=== PATIENT | female | born 1960 | race Caucasian/White ===

== ENCOUNTER 2017-04-10 08:47 | Emergency (ER) | payer MEDICAID ==
[~2017-04-10] VITALS: Ht 162.6 cm; Wt 50.0 kg
[~2017-04-10 08:47] MED LIST: ALENDRONATE70 MG PO; BACTRIM DS1 TAB PO; CARAFATE1 G1 OR; CEPHALEXIN500 MG PO; CIPRO500 MG OR; CIPROFLOXACIN H0.3 % OP; DEXILANT60 MG OR; DITROPAN PO; DITROPAN XL5 MG PO; DOXYCYCLINE HY100 MG PO; FLEXERIL PO; FOLIC ACID1 M1; KEFLEX500 MG PO; LEXAPRO10 MG PO; MEDDOSEPAK PO; MELOXICAM15 MG PO; METRONIDAZOL500 MG PO; MOBIC7.5 M1 PO; NAPROSYN500 MG PO; NAPROXEN500 MG OR; NO HOME MEDS; NO MEDS; NORCO1 TA1 PO; NYSTATIN100000 UN1; OXYCODONE/ACETA1 TA8; PHENERGAN25 MG/TAB PO; SYSTANE BAL OU; TESSALON PER100 MG PO; TETRACYCLINE500 MG OR; TRAMADOL HCL50 MG PO; ULTRAM50 M1 PO; UNK CHOLESTEROL MED; VENTOLIN HFA IN; VIBRAMYCIN100 M2 PO; ZITHROMAX250 MG PO
[2017-04-10] MEDS ORDERED: DITROPAN PO (10:01)
[2017-04-10] MEDS ORDERED: FLEXERIL PO (10:25)
[2017-04-10] MEDS ORDERED: LORTAB 10-325 M1 TAB PO (10:25)
[2017-04-10 10:45] VITALS: BP 105/77
== END 2017-04-10 10:45 | disposition home or self-care (01) | DRG 563 ==
LOC: ED 08:47
DX: S39.012A Strain of muscle, fascia and tendon of lower back, initial encounter (principal); F32.9 Major depressive disorder, single episode, unspecified; R10.2 Pelvic and perineal pain; F41.9 Anxiety disorder, unspecified; F17.210 Nicotine dependence, cigarettes, uncomplicated; X58.XXXA Exposure to other specified factors, initial encounter

== ENCOUNTER 2019-01-28 08:56 | Emergency (ER) | payer MEDICAID ==
[~2019-01-28] VITALS: Ht 162.6 cm; Wt 47.0 kg
[~2019-01-28 08:56] MED LIST changes: +LORTAB 10-325 M1 TAB PO
[2019-01-28 09:57] LABS: URINE BILIRUBIN - DIPSTICK NEGATIVE (NEGATIVE); URINE BLOOD DIPSTICK NEGATIVE (NEGATIVE); URINE COLOR YELLOW; URINE GLUCOSE - DIPSTICK NEGATIVE (NEGATIVE); URINE KETONE NEGATIVE (NEGATIVE); URINE LEUK ESTERASE TRACE (NEGATIVE); URINE NITRITE - DIPSTICK NEGATIVE (Negative); URINE PH 7.5 (4.5-8.0); URINE PROTEIN - DIPSTICK NEGATIVE (NEG-TRACE); URINE UROBILINOGEN - DIPSTICK 0.2 E.U./dL (0.2)
[2019-01-28 10:18] LABS: BARBITURATES NEGATIVE (NEGATIVE); COCAINE NEGATIVE (NEGATIVE); METHADONE NEGATIVE (NEGATIVE); OXCYCODONE NEGATIVE (NEGATIVE); TETRAHYDROCANNABIONOL NEGATIVE (NEGATIVE); TRICYLIC ANTIDEPRESSANTS NEGATIVE (NEGATIVE)
[2019-01-28] MEDS ORDERED: AMOXICILLIN500 MG PO (11:05)
[2019-01-28] MEDS ORDERED: NAPROSYN500 MG PO (11:05)
[2019-01-28 11:11] VITALS: BP 94/65
== END 2019-01-28 11:17 | disposition home or self-care (01) ==
LOC: ED 08:56
PROVIDERS: Emergency Medicine
DX: S53.402A Unspecified sprain of left elbow, initial encounter (principal); S50.812A Abrasion of left forearm, initial encounter; F19.10 Other psychoactive substance abuse, uncomplicated; F17.210 Nicotine dependence, cigarettes, uncomplicated; X50.3XXA Overexertion from repetitive movements, initial encounter; X58.XXXA Exposure to other specified factors, initial encounter

== ENCOUNTER 2022-07-24 11:16 | Emergency (ER) | payer MEDICAID ==
[~2022-07-24] VITALS: Ht 162.6 cm; Wt 47.3 kg
[~2022-07-24 11:16] MED LIST changes: +AMOXICILLIN500 MG PO
[2022-07-24 11:41] VITALS: BP 98/54
[2022-07-24 11:45] VITALS: BP 102/66
[2022-07-24 12:01] VITALS: BP 69/49
[2022-07-24 12:03] VITALS: BP 108/67
[2022-07-24 12:15] VITALS: BP 103/68
[2022-07-24] MEDS ORDERED: MEDDOSEPAK PO (12:38)
[2022-07-24] MEDS ORDERED: NAPROXEN500 MG PO (12:38)
[2022-07-24 13:20] VITALS: BP 103/68
== END 2022-07-24 13:44 | disposition home or self-care (01) ==
LOC: ED 11:16
DX: S82.65XA Nondisplaced fracture of lateral malleolus of left fibula, initial encounter for closed fracture (principal); J40 Bronchitis, not specified as acute or chronic; F17.210 Nicotine dependence, cigarettes, uncomplicated; W22.8XXA Striking against or struck by other objects, initial encounter

== ENCOUNTER 2023-04-27 14:09 | Emergency (ER) | payer MEDICAID ==
[~2023-04-27] VITALS: Ht 162.6 cm; Wt 44.0 kg
[2023-04-27] VITALS (7 sets, daily range): BP systolic 84–110; BP diastolic 56–69
[~2023-04-27 14:09] MED LIST changes: +NAPROXEN500 MG PO
[2023-04-27] MEDS ORDERED: NAPROXEN500 MG PO (15:46)
[2023-04-27] MEDS ORDERED: MEDDOSEPAK PO (15:46)
== END 2023-04-27 16:19 | disposition home or self-care (01) ==
LOC: ED 14:09
DX: S62.625A Displaced fracture of middle phalanx of left ring finger, initial encounter for closed fracture (principal); R21 Rash and other nonspecific skin eruption; W18.30XA Fall on same level, unspecified, initial encounter; Y92.009 Unspecified place in unspecified non-institutional (private) residence as the place of occurrence of the external cause; F17.200 Nicotine dependence, unspecified, uncomplicated

== ENCOUNTER 2023-07-22 15:38 | Emergency (ER) | payer MEDICAID | END 2023-07-22 16:17 | disposition left against medical advice (07) | DRG 951 | LOC: ED 15:38 → LWOBS 16:17 | DX: Z53.21 Procedure and treatment not carried out due to patient leaving prior to being seen by health care provider (principal) ==

== ENCOUNTER 2024-06-11 11:25 | Emergency (ER) | payer MEDICAID ==
[~2024-06-11] VITALS: Ht 162.6 cm; Wt 45.3 kg
[2024-06-11] VITALS (7 sets, daily range): BP systolic 96–114; BP diastolic 66–77
[2024-06-11] MEDS ORDERED: KETOROLAC TROMETHAMINE 15 MG/ML SDV IM ONE (12:15)
[2024-06-11] MEDS ORDERED: predniSONE 20 MG/TAB PO ONE (12:15)
[2024-06-11] MEDS ORDERED: PREDNISONE20 MG PO (12:20)
== END 2024-06-11 13:34 | disposition home or self-care (01) ==
LOC: ED 11:25
DX: M19.042 Primary osteoarthritis, left hand (principal); M19.041 Primary osteoarthritis, right hand; F17.200 Nicotine dependence, unspecified, uncomplicated